=== PATIENT | female | born 1960 | race Caucasian/White ===

== ENCOUNTER 2016-11-06 11:22 | Day surgery (SDC) | payer OTHER ==
[~2016-11-06] VITALS: Ht 152.4 cm; Wt 78.9 kg
[2016-11-06 12:07] VITALS: Ht 152.4 cm; Wt 78.9 kg
[2016-11-06] MEDS ORDERED: BENA20TA48 PO (12:29)
[2016-11-06 12:40] VITALS: BP 146/81; PULSE 70; RESP 16
[2016-11-06] MEDS ORDERED: MIDAZOLAM 1 MG/ML 2 ML INJ ONE (14:25)
[2016-11-06] MEDS ORDERED: FENTAnyl 50 MCG/ML VIAL ONE (14:25)
[2016-11-06 14:52] VITALS: BP 127/71; RESP 20
--- NOTE | 2016-12-11 14:48 | GILP ---
DATE OF PROCEDURE: 11/23/2016 PREOPERATIVE DIAGNOSIS: Screening colonoscopy. POSTOPERATIVE DIAGNOSES: 1. Colonoscopy all the way to the cecum. 2. Internal hemorrhoids. 3. No colon neoplasm was identified. PROCEDURE PERFORMED: Colonoscopy. SURGEON: Phil Huerta MD. INDICATION FOR PROCEDURE: Ms. Lenore Brennan is a 56-year-old female patient who was scheduled for screening colonoscopy. The procedure and possible complications were well explained to the patient. The patient understood and consented to the procedure. DESCRIPTION OF PROCEDURE: The colonoscope was carefully introduced in the rectum. Under direct vision it was advanced all the way to the cecum. Findings, the patient had internal hemorrhoids. No colon neoplasm was identified. The patient tolerated the procedure very well and there was no complications from the procedure. At the end of procedure she was awake with stable vital signs and she was discharged home in the care of her family. IMPRESSION: 1. Colonoscopy all the way to the cecum. 2. Internal hemorrhoids. 3. No colon neoplasm was identified. PLAN: Next screening colonoscopy in 10 years. Dictated By: MD HARITHA Wiley/[email or web address]/robbie /Document#: [id number] CC: Phil Huerta MD
== END 2016-11-06 16:01 | disposition home or self-care (01) ==
LOC: GIL 11:22
PROVIDERS: ATTEND Internal Medicine Gastroenterology
DX: Z12.11 Encounter for screening for malignant neoplasm of colon (principal); K64.8 Other hemorrhoids; I10 Essential (primary) hypertension
CPT/HCPCS: 45378; J2250; J3010; Z7610